=== PATIENT | male | born 1960 | race Two or more races ===

== ENCOUNTER 2016-11-07 16:14 | Emergency (ER) | payer OTHER ==
[2016-11-07] MEDS ORDERED: ALBUTEROL/IPRATROPIUM 2.5/0.5 MG 3 ML/EACH DOSE ONE (16:52)
[2016-11-07 18:04] LABS: BASO % 0.2 % (0.2-1.0); EOS % 0.6 % (0.9-2.9); HEMATOCRIT 47.1 % (32.0-52.0); HEMOGLOBIN 16.1 gm/l (14.0-18.0); IMM NEUT% 0.2 % (0-1); LYMPH % 37.8 % (15-45); MEAN CELL VOLUME 93.6 fl (80.0-94.0); MEAN CORPUSCULAR HGB CONC 34.2 g/dl (33.0-37.0); MEAN PLATELET VOLUME 8.8 fl (7.4-10.4); MONO # 0.4 (0.0-0.8); MONO % 6.5 % (4-12); NEUT % 54.7 % (43-75); PLATELET COUNT 264 K/mm3 (130-400); RED CELL DISTRIBUTION WIDTH 12.6 % (11.5-14.5)
[2016-11-07 18:13] LABS: ALB/GLOB RATIO 1.4 (>1.0); ALBUMIN 4.4 gm/dL (3.5-5.7); CALCIUM 9.6 mg/dL (8.6-10.3)
--- NOTE | 2016-11-07 18:43 | RAD ---
Exam: Two-view chest COMPARISON: None INDICATION: Shortness of breath and chest pain. FINDINGS: PA and lateral views of the chest were obtained. Cardiac silhouette is within normal limits. Lungs are well-inflated. There is no focal airspace disease. There is minor blunting of bilateral costophrenic angle which is of uncertain chronicity given lack of comparisons. 5 mm nodule is noted within the left lung base. No additional pulmonary nodules are identified. Minor degenerative change are seen within the thoracic spine. IMPRESSION: 1. Minor blunting of left costophrenic angle, which may be related to scarring or tiny pleural effusion. 2. 5 mm nodule within the left lung base which is of uncertain chronicity given lack of comparisons. Recommend comparison with prior outside films if available versus 3-6 month follow-up chest radiograph.
== END 2016-11-07 19:01 | disposition home or self-care (01) ==
LOC: ED 16:14
DX: R05 Cough (principal); R06.00 Dyspnea, unspecified; R07.9 Chest pain, unspecified; R06.02 Shortness of breath